=== PATIENT | male | born 1945 | race Caucasian/White ===

== ENCOUNTER → 2016-10-23 | Outpatient (REF) | payer MEDICARE ==
[~2016-10-23] MED LIST: HYDR50TA3 PO
[2016-10-23 11:50] LABS: ANION GAP 14.7 MEQ/L (3-15)
== END ==
LOC: LAB 10:27
PROVIDERS: ATTEND Family Medicine
DX: I10 Essential (primary) hypertension (principal)
CPT/HCPCS: 80048